=== PATIENT | female | born 1985 | race African-American/Black ===

== ENCOUNTER 2018-09-19 07:54 | Observation (INO) | payer BC ==
[~2018-09-19] VITALS: Ht 160 cm; Wt 78.0 kg
[2018-09-19 08:58] VITALS: BP 121/74
[2018-09-19] MEDS ORDERED: PNV11TAB PO (10:33)
[2018-09-19] MEDS ORDERED: MACR100 PO (10:34)
== END 2018-09-19 09:35 | disposition home or self-care (01) ==
LOC: 4S 08:00
PROVIDERS: ADMIT Obstetrics & Gynecology; ATTEND Obstetrics & Gynecology
DX: O09.523 Supervision of elderly multigravida, third trimester (principal); Z3A.34 34 weeks gestation of pregnancy
CPT/HCPCS: 81002; G0378

== ENCOUNTER 2018-09-21 08:05 | Observation (INO) | payer BC ==
[~2018-09-21] VITALS: Ht 160 cm; Wt 77.8 kg
[~2018-09-21 08:05] MED LIST: MACR100 PO; PNV11TAB PO
[2018-09-21 08:46] VITALS: BP 111/75
== END 2018-09-21 09:00 | disposition home or self-care (01) ==
LOC: 4S 08:05
PROVIDERS: ADMIT Obstetrics & Gynecology; ATTEND Obstetrics & Gynecology
DX: O09.523 Supervision of elderly multigravida, third trimester (principal); Z3A.34 34 weeks gestation of pregnancy
CPT/HCPCS: 81002; G0378

== ENCOUNTER 2018-09-26 08:15 | Observation (INO) | payer BC ==
[2018-09-26 08:28] VITALS: BP 116/76
== END 2018-09-26 09:20 | disposition home or self-care (01) ==
LOC: 4S 08:15
PROVIDERS: ADMIT Obstetrics & Gynecology; ATTEND Obstetrics & Gynecology
DX: O09.523 Supervision of elderly multigravida, third trimester (principal); Z3A.34 34 weeks gestation of pregnancy
CPT/HCPCS: 81002; G0378

== ENCOUNTER 2018-09-30 08:05 | Observation (INO) | payer BC ==
[~2018-09-30] VITALS: Ht 160 cm; Wt 80.3 kg
== END 2018-09-30 09:05 | disposition home or self-care (01) ==
LOC: 4S 08:05
PROVIDERS: ADMIT Obstetrics & Gynecology; ATTEND Obstetrics & Gynecology
DX: O09.523 Supervision of elderly multigravida, third trimester (principal); Z3A.35 35 weeks gestation of pregnancy

== ENCOUNTER 2018-10-05 08:00 | Observation (INO) | payer BC ==
[~2018-10-05] VITALS: Ht 157.5 cm; Wt 80.4 kg
[2018-10-05 08:24] VITALS: BP 106/68
== END 2018-10-05 08:45 | disposition home or self-care (01) ==
LOC: 4S 08:00
PROVIDERS: ADMIT Obstetrics & Gynecology; ATTEND Obstetrics & Gynecology
DX: O09.523 Supervision of elderly multigravida, third trimester (principal); Z3A.36 36 weeks gestation of pregnancy

== ENCOUNTER 2018-10-07 08:00 | Observation (INO) | payer BC ==
[~2018-10-07] VITALS: Ht 160 cm; Wt 78.9 kg
[2018-10-07 08:52] VITALS: BP 123/60
== END 2018-10-07 08:45 | disposition home or self-care (01) ==
LOC: 4S 08:00
PROVIDERS: ADMIT Obstetrics & Gynecology; ATTEND Obstetrics & Gynecology
DX: O09.523 Supervision of elderly multigravida, third trimester (principal); Z3A.36 36 weeks gestation of pregnancy
CPT/HCPCS: 81002; G0378

== ENCOUNTER 2018-10-10 08:06 | Observation (INO) | payer BC | END 2018-10-10 09:05 | disposition home or self-care (01) | LOC: 4S 08:06 | PROVIDERS: ADMIT Obstetrics & Gynecology; ATTEND Obstetrics & Gynecology | DX: O09.523 Supervision of elderly multigravida, third trimester (principal); Z3A.36 36 weeks gestation of pregnancy | CPT/HCPCS: 81002; G0378 ==

== ENCOUNTER 2018-10-14 08:09 | Observation (INO) | payer BC ==
[2018-10-14 08:25] VITALS: BP 119/69
== END 2018-10-14 08:45 | disposition home or self-care (01) ==
LOC: 4S 08:09
PROVIDERS: ADMIT Obstetrics & Gynecology; ATTEND Obstetrics & Gynecology
DX: O98.813 Other maternal infectious and parasitic diseases complicating pregnancy, third trimester (principal); B95.2 Enterococcus as the cause of diseases classified elsewhere; O09.523 Supervision of elderly multigravida, third trimester; Z3A.37 37 weeks gestation of pregnancy
CPT/HCPCS: 81002; G0378

== ENCOUNTER 2018-10-17 08:10 | Observation (INO) | payer BC ==
[~2018-10-17] VITALS: Ht 162.6 cm; Wt 82.1 kg
[2018-10-17 08:32] VITALS: BP 111/68
== END 2018-10-17 09:05 | disposition home or self-care (01) ==
LOC: 4S 08:10
PROVIDERS: ADMIT Obstetrics & Gynecology; ATTEND Obstetrics & Gynecology
DX: O09.523 Supervision of elderly multigravida, third trimester (principal); Z3A.37 37 weeks gestation of pregnancy

== ENCOUNTER 2018-10-20 08:00 | Observation (INO) | payer BC ==
[~2018-10-20] VITALS: Ht 162.6 cm; Wt 83.0 kg
[2018-10-20 08:13] VITALS: BP 123/76
== END 2018-10-20 08:35 | disposition home or self-care (01) ==
LOC: 4S 08:00
PROVIDERS: ADMIT Obstetrics & Gynecology; ATTEND Obstetrics & Gynecology
DX: O09.523 Supervision of elderly multigravida, third trimester (principal); Z3A.38 38 weeks gestation of pregnancy
CPT/HCPCS: 81002; G0378

== ENCOUNTER 2018-10-24 08:20 | Observation (INO) | payer BC ==
[~2018-10-24] VITALS: Ht 157.5 cm; Wt 82.1 kg
== END 2018-10-24 09:00 | disposition home or self-care (01) ==
LOC: 4S 08:20
PROVIDERS: ADMIT Obstetrics & Gynecology; ATTEND Obstetrics & Gynecology
DX: O09.523 Supervision of elderly multigravida, third trimester (principal); Z3A.38 38 weeks gestation of pregnancy
CPT/HCPCS: 81002; G0378

== ENCOUNTER 2018-10-25 18:30 | Inpatient (IN) | payer BC ==
[~2018-10-25] VITALS: Ht 160 cm; Wt 81.6 kg
[2018-10-25] MEDS ORDERED: RINGERS SOLUTION,LACTATED 1,000 ML IV SCH (19:00)
[2018-10-25] MEDS ORDERED: OXYTOCIN 30 UNITS/LACT RINGERS 500 ML IV ONE (19:13)
[2018-10-25] MEDS ORDERED: RINGERS SOLUTION,LACTATED 1,000 ML IV PRN (19:13)
[2018-10-25] MEDS ORDERED: LIDOCAINE/PF 1% 30 ML VIAL INJ PRN (19:15)
[2018-10-25] MEDS ORDERED: METOCLOPRAMIDE HCL 5 MG/ML 2 ML VIAL IVP PRN (19:15)
[2018-10-25] MEDS ORDERED: CITRIC ACID/SODIUM CITRATE 30 ML SOLUTION UDCUP PO PRN (19:15)
[2018-10-25] MEDS ORDERED: FentaNYL CITRATE-PF 100 MCG/2 ML VIAL IVP PRN (19:15)
[2018-10-25] MEDS ORDERED: ROPIVACAINE HCL/PF 0.2% 100 ML ED ONE (19:26)
[2018-10-25] MEDS ORDERED: DiphenhydrAMINE HCL 50 MG/ML VIAL IVP PRN (19:30)
[2018-10-25] MEDS ORDERED: ONDANSETRON HCL 4 MG/2 ML VIAL IVP PRN (19:30)
[2018-10-25] MEDS ORDERED: ROPIVACAINE HCL/PF 0.2% 100 ML ED PRN (19:30)
[2018-10-25 19:35] LABS: BASOPHILS % (AUTO) 0.2 % (0.0-2.0); EOSINOPHILS % (AUTO) 0.6 % (1.0-6.0); HEMATOCRIT 43.4 % (36-46); HEMOGLOBIN 14.4 g/dL (12.0-16.0); LYMPHOCYTES # (AUTO) 2.2 K/uL (1.0-4.8); LYMPHOCYTES % (AUTO) 18.7 % (22.0-44.0); MEAN CORPUSCULAR HEMOGLOBIN 32.3 pg (26.0-34.0); MEAN CORPUSCULAR HGB CONC 33.3 G/dL (31.0-37.0); MEAN CORPUSCULAR VOLUME 97 fL (80-100); MONOCYTES # (AUTO) 0.7 K/uL (0.1-1.0); MONOCYTES % (AUTO) 6.1 % (2.0-9.0); NEUTROPHILS # (AUTO) 8.7 K/uL (1.8-7.7); NEUTROPHILS % (AUTO) 74.4 % (40.0-70.0); PLATELET COUNT (AUTO)-OB 239 K/uL (150-450); RED BLOOD CELL COUNT(AUTO) 4.47 MIL/uL (4.00-5.20); RED CELL DISTRIBUTION WIDTH 13.6 % (11.5-14.5)
[2018-10-25 19:42] VITALS: BP 130/69
[2018-10-25] MEDS ORDERED: OXYGEN THERAPY IH SCH (20:00)
[2018-10-25] MEDS: RINGERS SOLUTION,LACTATED 1,000 ML IV SCH ×2 (20:20→22:24)
[2018-10-26] MEDS ORDERED: OXYTOCIN 20 UNITS/LACT RINGERS 1,000 ML IV ONE (03:05)
[2018-10-26] MEDS ORDERED: LANOLIN 7 GM OINTMENT TP PRN (05:30)
[2018-10-26] MEDS ORDERED: GLYCERIN/WITCH HAZEL LEAF 40 PADS JAR TP PRN (05:30)
[2018-10-26] MEDS ORDERED: BENZOCAINE 20%/MENTHOL 56 GM SPRAY CANISTER TP PRN (05:30)
[2018-10-26] MEDS: ACETAMINOPHEN/CODEINE 300-30 MG TABLET PO PRN ×4 (06:18→18:42)
[2018-10-26] MEDS: IBUPROFEN 600 MG TABLET PO PRN ×2 (08:09→15:01)
[2018-10-26] MEDS: MAGNESIUM HYDROXIDE SUSPENSION 30 ML UDCUP PO PRN ×2 (08:09→21:07)
[2018-10-26] MEDS: SENNA/DOCUSATE SODIUM 8.6-50 MG TABLET PO PRN ×2 (08:09→21:07)
[2018-10-27] MEDS ORDERED: RINGERS SOLUTION,LACTATED 1,000 ML IV SCH (05:11)
[2018-10-27] MEDS ORDERED: RINGERS SOLUTION,LACTATED 1,000 ML IV ONE (05:11)
[2018-10-27] MEDS ORDERED: CeFAZolin 2 GM/DEXTROSE 50 ML IV ONE (05:15)
[2018-10-27] MEDS ORDERED: METOCLOPRAMIDE HCL 5 MG/ML 2 ML VIAL IVP ONE (05:15)
[2018-10-27] MEDS ORDERED: CITRIC ACID/SODIUM CITRATE 30 ML SOLUTION UDCUP PO ONE (05:15)
[2018-10-27] MEDS: ACETAMINOPHEN 500 MG TABLET PO SCH ×2 (06:00→18:24)
[2018-10-27 06:57] LABS: BASOPHILS % (AUTO) 0.2 % (0.0-2.0); EOSINOPHILS % (AUTO) 1.3 % (1.0-6.0); HEMOGLOBIN 12.6 g/dL (12.0-16.0); LYMPHOCYTES # (AUTO) 2.3 K/uL (1.0-4.8); LYMPHOCYTES % (AUTO) 19.8 % (22.0-44.0); MEAN CORPUSCULAR HEMOGLOBIN 32.1 pg (26.0-34.0); MEAN CORPUSCULAR HGB CONC 33.2 G/dL (31.0-37.0); MEAN CORPUSCULAR VOLUME 97 fL (80-100); MONOCYTES # (AUTO) 0.6 K/uL (0.1-1.0); MONOCYTES % (AUTO) 5.1 % (2.0-9.0); NEUTROPHILS # (AUTO) 8.4 K/uL (1.8-7.7); NEUTROPHILS % (AUTO) 73.6 % (40.0-70.0); PLATELET COUNT (AUTO)-OB 204 K/uL (150-450); RED BLOOD CELL COUNT(AUTO) 3.93 MIL/uL (4.00-5.20); RED CELL DISTRIBUTION WIDTH 13.8 % (11.5-14.5)
[2018-10-27] MEDS ORDERED: BUPIVACAINE HCL/PF 0.25% 30 ML VIAL ONE (08:00)
[2018-10-27] MEDS ORDERED: MEPERIDINE-PF 25 MG/ML VIAL IVP PRN (09:00)
[2018-10-27] MEDS ORDERED: FentaNYL CITRATE-PF 100 MCG/2 ML VIAL IVP PRN (09:00)
[2018-10-27] MEDS ORDERED: OxyCODONE HCL/ACETAMINOPHEN 10-325 MG TABLET PO PRN (09:00)
[2018-10-27] MEDS ORDERED: HYDROmorphone 2 MG/ML SYRINGE IVP PRN ×2 (09:00)
[2018-10-27] MEDS ORDERED: MIDAZOLAM HCL 2 MG/2 ML VIAL IVP ONE (12:00)
[2018-10-27] MEDS ORDERED: EPHEDrine SULFATE 50 MG/ML VIAL IM ONE (12:00)
[2018-10-27] MEDS ORDERED: ONDANSETRON HCL 4 MG/2 ML VIAL IVP ONE (12:00)
[2018-10-27] MEDS: IBUPROFEN 600 MG TABLET PO PRN ×2 (14:55→21:16)
[2018-10-27] MEDS: ACETAMINOPHEN/CODEINE 300-30 MG TABLET PO PRN (14:55)
[2018-10-27] MEDS ORDERED: ACET-66 PO (17:54)
[2018-10-27] MEDS ORDERED: IBUP-2070 PO (17:55)
[2018-10-27] MEDS ORDERED: DSS100 PO (17:56)
[2018-10-27] MEDS ORDERED: KETOROLAC TROMETHAMINE 15 MG/ML VIAL IVP SCH (18:00)
[2018-10-27] MEDS: MAGNESIUM HYDROXIDE SUSPENSION 30 ML UDCUP PO PRN (21:15)
[2018-10-27] MEDS: SENNA/DOCUSATE SODIUM 8.6-50 MG TABLET PO PRN (21:16)
[2018-10-28] MEDS: ACETAMINOPHEN 500 MG TABLET PO SCH ×2 (00:20→07:46)
[2018-10-28] MEDS: IBUPROFEN 600 MG TABLET PO PRN (03:41)
[2018-10-28] MEDS: SENNA/DOCUSATE SODIUM 8.6-50 MG TABLET PO PRN (08:59)
[2018-10-28] MEDS: MAGNESIUM HYDROXIDE SUSPENSION 30 ML UDCUP PO PRN (08:59)
== END 2018-10-28 09:40 | disposition home or self-care (01) | DRG 798 ==
LOC: OBSVTOIN 18:30 → 4S 18:30
PROVIDERS: ADMIT Obstetrics & Gynecology; ATTEND Obstetrics & Gynecology
PROC: 10E0XZZ Delivery of Products of Conception, External Approach (ICD-10-PCS; principal; 2018-10-26)
PROC: 0HQ9XZZ Repair Perineum Skin, External Approach (ICD-10-PCS; 2018-10-26)
PROC: 3E0R3BZ Introduction of Anesthetic Agent into Spinal Canal, Percutaneous Approach (ICD-10-PCS; 2018-10-26)
PROC: 00HU33Z Insertion of Infusion Device into Spinal Canal, Percutaneous Approach (ICD-10-PCS; 2018-10-26)
PROC: 0UL70ZZ Occlusion of Bilateral Fallopian Tubes, Open Approach (ICD-10-PCS; 2018-10-27)
DX: O70.0 First degree perineal laceration during delivery (principal); Z37.0 Single live birth; Z3A.39 39 weeks gestation of pregnancy
CPT/HCPCS: 86850; 86900; 86901; 88302; J2250; J2405; J2590; J2795; J3010; J3490; J7120